=== PATIENT | male | born 1945 | race Caucasian/White ===

== ENCOUNTER 2019-09-02 22:31 | Emergency (ER) | payer MEDICARE, OTHER, SELFPAY ==
--- NOTE | 2019-09-02 22:33 | ECG_ITS ---
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 Measurements Intervals [place] Rate: 76 P: 28 NM: 175 QRS: 5 QRSD: 110 T: -29 QT: 366 QTc: 413 Interpretive Statements SINUS RHYTHM INFERIOR MYOCARDIAL INFARCTION [40+ ms Q WAVE AND/OR ST/T ABNORMALITY IN II/aVF], OF INDETERMINATE AGE Compared to ECG 09/13/2016 16:11:01 No significant changes Electronically Signed On 09-03-2019 19:04:20 CDT by Rinku Tan M.D. [email or web address]
--- NOTE | 2019-09-02 22:33 | XRR_ITS ---
PROCEDURE INFORMATION: Exam: XR Chest, 1 View Exam date and time: 09/02/2019 10:57 PM Age: 74 years old Clinical indication: Other: Palpitations; Prior surgery; Surgery type: Stent TECHNIQUE: Imaging protocol: XR of the chest Views: 1 view. COMPARISON: [place] Chest 1 [place] [id number] 09/13/2016 10:00 AM FINDINGS: Lungs: Unremarkable. No consolidation. Pleural space: Unremarkable. No pleural effusion. No pneumothorax. Heart/Mediastinum: Unremarkable. No cardiomegaly. Bones/joints: Unremarkable. XR/XR chest 1V portable [id number] IMPRESSION: No acute findings.
[2019-09-02 22:39] VITALS: BP 183/77; PULSE 72; RESP 14; TEMP 36.3; O2SAT 96; BMI 28.3
--- NOTE | 2019-09-02 22:42 | ED_ITS ---
HPI - Arrhythmia/Palpitations General: Chief Complaint: Arrhythmia/Palpitations Stated Complaint: irregular hr Time Seen by Provider: 09/02/19 22:33 Source: patient and family Mode of arrival: ambulatory Limitations: no limitations History of Present Illness: HPI narrative: Mr. Armas is a very nice 74-year-old male who comes in complaining of palpitations. He states he was at home asleep when the palpitations awoke him. He felt jittery and chilled but did not have a fever. He denies any chest pain, shortness of breath, diaphoresis, nausea/vomiting, syncope or near syncopal type symptoms. He may have gotten overheated working outside in the sun 2 days ago and attributed his symptoms to this but also felt his heart racing and per the advice of his daughter who is a physician was advised to be checked out. Upon arrival here the patient states he still feels the palpitations. Patient's vital signs show a normal heart rate but his blood pressure is mildly elevated. He denies any headache, neck pain, chest pain, shortness of breath, back pain, abdominal pain, or extremity pain or numbness/weakness. He is unaware of anything that made his symptoms better or worse but he does feel like they are slowly improving on their own. Associated symptoms: Deny diaphoresis, nausea, pre-syncope, syncope or vomiting Review of Systems Const: Denies: fever(s), chills, body aches, fatigue, malaise or diaphoresis Eyes: Denies: change in vision, blurry vision, blind spots, photophobia, eye discharge or eye redness ENMT: Denies: throat pain, odynophagia, hoarseness, swelling of lips/tongue, oral sores, ear or mastoid pain, ear discharge, change in hearing or nasal discharge Card: Reports: palpitations; Denies: chest pain, irregular heart rhythm, edema, lightheadedness, syncope, pre-syncope, dyspnea on exertion or orthopnea Resp: Denies: dyspnea, productive cough, non-productive cough, wheezing, hemoptysis or chest congestion GI: Denies: abdominal pain, nausea, vomiting, hematemesis, coffee ground emesis, heartburn, diarrhea, constipation, GI cramping, hematochezia or melena : Denies: flank pain, dysuria, urinary frequency, urinary urgency or hematuria Musc: Denies: neck pain, back pain, extremity pain, extremity swelling, joint pain, joint swelling, joint redness, joint warmth or joint stiffness Skin/Breast: Denies: rash, pruritus, erythema, skin tenderness or jaundice Neuro: Denies: headache(s), numbness in extremities, weakness in extremities, sensory changes, lack of coordination, difficulty walking, dizziness, vertigo, confusion, Slurred speech present or seizure-like activity Arthur/Lymph: Denies: easy bruising, easy bleeding, petechiae, purpura or enlarged lymph nodes All/Imm: Denies: urticaria, throat swelling, tongue swelling, facial swelling or acute wheezing PFSH ED PFSH: Medical History (Updated 09/03/19 @ 01:50 by Anat Stinson) CAD (coronary atherosclerotic disease) Degenerative joint disease (DJD) of hip Hyperlipidemia Hypertension Myocardial infarction Surgical History (Updated 09/03/19 @ 01:12 by Anat Stinson) Status post percutaneous transluminal 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) with stent placement Family History (Updated 09/03/19 @ 01:13 by Anat Stinson) Other Atrial fibrillation CAD (coronary artery disease) Social History (Updated 09/03/19 @ 01:13 by Anat Stinson) Smoking and tobacco status: never smoked Alcohol intake: never Substance/Drug Use: never Physical Exam Const: COMMON NORMALS: no acute distress, patient oriented x3, no limitations, healthy appearing and well nourished GENERAL APPEARANCE: cooperative, well kempt and well developed HENMT: COMMON NORMALS: normocephalic, atraumatic, external ears normal, EAC's normal and Normal external nose present HEAD & SCALP: normal to inspection, normocephalic and atraumatic FACE & SINUS: normal facial exam and face symmetric NOSE: Normal external nose present and Normal nares present EXTERNAL EAR: Yes external ears normal EXTERNAL AUDITORY CANAL: EAC's normal MOUTH: Normal oral and palatal mucosa present, lip normal and tongue normal Eye: COMMON NORMALS: Equal, round and reactive pupils present and conjunctivae normal GENERAL EYE: appearance normal, both eyes and all related structures ALIGNMENT: Yes alignment normal PERIORBITAL: periorbital findings normal EYELID: eyelids normal CONJUNCTIVA: Yes conjunctivae normal SCLERA: sclerae normal PUPIL: Yes Equal, round and reactive pupils present Neck/C-Spine: COMMON NORMALS: full ROM, no lymphadenopathy, supple, no meningeal signs and no JVD GENERAL: Yes normal visual inspection and Yes trachea midline Chest: COMMONS NORMALS: normal inspection of the chest and normal palpation of entire chest wall Resp: COMMON NORMALS: normal respiratory effort, No retractions and No use of accessory muscles EFFORT & INSPECTION: Yes able to speak in complete sentences and Yes symmetric chest movement AUSCULTATION: no crackles, no rales, no rhonchi and no wheezes Cardio: COMMON NORMALS: no JVD, regular rate, regular rhythm, S1 normal heart sound present and S2 normal heart sound present RATE: regular rate RHYTHM: regular rhythm HEART SOUNDS: S1 normal heart sound present, S2 normal heart sound present, no click, no gallops, no murmurs, no rubs and abnormal split S2 GI: COMMON NORMALS: Soft to palpation and No hepatosplenomegaly present PALPATION: Yes Soft to palpation, No Tenderness to palpation present (GI), No Guarding due to palpation present (GI), No Rigid due to palpation, Yes No hepatosplenomegaly present, No Hernia present, No Palpable mass present and No Pulsatile mass present : COMMON NORMALS: Yes no CVA tenderness BLADDER/KIDNEY EXAM: Yes no CVA tenderness Back/Pelvis: COMMON NORMALS: no CVA tenderness, thoracic and lumbar spine normal to inspection, no thoracic nor lumbar tenderness and thoraco-lumbar ROM normal Extremity: COMMON NORMALS: normal to inspection, full ROM, capillary refill normal, no joint enlargement, no clubbing, cyanosis or edema and no calf tenderness Neuro: COMMON NORMALS: patient oriented x3, CN's II-XII intact bilaterally, moves all extremities, no focal motor deficits and no sensory deficits noted MENINGEAL SIGNS: Yes no meningeal signs SPEECH: speech normal Psych: COMMON NORMALS: mental status grossly normal, Normal thought process present, cooperative, normal affect, speech normal and activity/motor behavior normal APPEARANCE: Yes well kempt SPEECH: Yes normal speech THOUGHT PROCESS: Normal thought process present Skin: COMMON NORMALS: no rashes or lesions noted, turgor normal, no jaundice, no petechiae and no mottling GENERAL SKIN EXAM: no rashes or lesions noted and turgor normal Course Vital Signs: Vital signs: Vital Signs Temperature 97.4 F L 09/02/19 22:39 Pulse Rate 72 09/03/19 02:10 Respiratory Rate 12 09/03/19 02:10 Blood Pressure 128/74 09/03/19 02:10 Pulse Oximetry 97 09/03/19 02:10 MDM - Arrhythmia/Palpitations MDM Narrative: Medical decision making narrative: The case was reviewed with the patient's daughter who is also Dr. There is no sign of A. fib or arrhythmia here. There is no PE. Patient is feeling tremendously better and his symptoms of resolved. He would like to be discharged home but does agree to return should his symptoms change or worsen. Lab Data: Attestation: I reviewed the patient's lab results. Labs: Lab Results 09/02/19 09/02/19 09/02/19 Range/Units 22:53 22:53 22:53 WBC 10.7 H (4.0-10.0) 10^3/ uL RBC 5.17 (4.1-5.3) 10^6/u L Hgb 14.7 (11.7-16.6) g/dL Hct 44.7 (42.0-52.0) % MCV 86.5 (80-94) fL MCH 28.4 (28.0-34.0) pg MCHC 32.9 (30.0-36.0) g/dL RDW 12.8 (12.1-15.1) % Plt Count 323 (130-400) 10^3/c mm MPV 10.0 (7.4-10.4) fL Neut % (Auto) 53.1 % Lymph % (Auto) 31.8 % King % (Auto) 10.9 % Eos % (Auto) 3.3 % Baso % (Auto) 0.6 % Neut # (Auto) 5.68 (1.8-7.7) 10^3/u L Lymph # (Auto) 3.4 (0.8-4.8) 10^3/u L King # (Auto) 1.2 H (0.2-0.9) 10^3/u L Eos # (Auto) 0.4 (0.0-0.8) 10^3/u L Baso # (Auto) 0.1 (0.0-0.1) 10^3/u L Nucleated RBC % (a uto) 0 % Nucleated RBCs # 0.0 /100WBC PT 12.50 (10.5-13.3) SECO NDS INR 0.91 (0.8-1.2) APTT 32.5 (23.9-36.7) SECO NDS D-Dimer 0.88 H (0-0.59) ug/mIFE U Sodium 135 L (136-145) mmol/L Potassium 4.3 (3.5-5.1) mmol/L Chloride 98 (98-107) mmol/L Carbon Dioxide 28 (22-29) mmol/L Anion Gap 13.3 (5-19) BUN 19 (8-23) mg/dL Creatinine 1.2 (0.7-1.2) mg/dL Glucose 107 (65-115) mg/dL Calculated Osmolal ity 277 L (285-295) mOsm/k g Calcium 10.5 (8.5-10.5) mg/dL Magnesium 2.1 (1.7-2.3) mg/dL Total Bilirubin 0.4 (0.15-1.2) mg/dL AST 25 (0-40) U/L ALT 32 (0-41) U/L Alkaline Phosphata se 70 (40-130) IU/L Troponin T Baselin e (0-15) ng/L Troponin T 120 [place] (0-15) ng/L Delta Troponin T (0-10) ABS# NT-Pro-B Natriuret Pep 52 (0-125) pg/mL Total Protein 7.4 (6.6-8.7) g/dL Albumin 4.7 (3.5-5.2) g/dL Globulin 2.7 (1.3-4.6) g/dL TSH 10.45 H (0.27-4.20) uIU/ mL Free T4 1.13 (0.82-1.77) ng/d L 09/02/19 09/03/19 Range/Units 22:53 00:51 WBC (4.0-10.0) 10^3/ uL RBC (4.1-5.3) 10^6/u L Hgb (11.7-16.6) g/dL Hct (42.0-52.0) % MCV (80-94) fL MCH (28.0-34.0) pg MCHC (30.0-36.0) g/dL RDW (12.1-15.1) % Plt Count (130-400) 10^3/c mm MPV (7.4-10.4) fL Neut % (Auto) % Lymph % (Auto) % King % (Auto) % Eos % (Auto) % Baso % (Auto) % Neut # (Auto) (1.8-7.7) 10^3/u L Lymph # (Auto) (0.8-4.8) 10^3/u L King # (Auto) (0.2-0.9) 10^3/u L Eos # (Auto) (0.0-0.8) 10^3/u L Baso # (Auto) (0.0-0.1) 10^3/u L Nucleated RBC % (a uto) % Nucleated RBCs # /100WBC PT (10.5-13.3) SECO NDS INR (0.8-1.2) APTT (23.9-36.7) SECO NDS D-Dimer (0-0.59) ug/mIFE U Sodium (136-145) mmol/L Potassium (3.5-5.1) mmol/L Chloride (98-107) mmol/L Carbon Dioxide (22-29) mmol/L Anion Gap (5-19) BUN (8-23) mg/dL Creatinine (0.7-1.2) mg/dL Glucose (65-115) mg/dL Calculated Osmolal ity (285-295) mOsm/k g Calcium (8.5-10.5) mg/dL Magnesium (1.7-2.3) mg/dL Total Bilirubin (0.15-1.2) mg/dL AST (0-40) U/L ALT (0-41) U/L Alkaline Phosphata se (40-130) IU/L Troponin T Baselin e 15 (0-15) ng/L Troponin T 120 [place] 14.32 (0-15) ng/L Delta Troponin T -0.68 L (0-10) ABS# NT-Pro-B Natriuret Pep (0-125) pg/mL Total Protein (6.6-8.7) g/dL Albumin (3.5-5.2) g/dL Globulin (1.3-4.6) g/dL TSH (0.27-4.20) uIU/ mL Free T4 (0.82-1.77) ng/d L Imaging Data^: CT Chest: Radiologist's impression: [facility] [address] [place] [address] CT Scan Report Signed Patient: Patrick Armas Unit #: [id number] : 1945 Age/Sex: 74 / M ADM Date: 09/02/19 Loc: ER Room/Bed: Attending Dr: Ordering Provider/Ordering MD: Anat Stinson DO Date of Service: 09/02/19 Procedure(s): CT angio chest PE protcl [id number] Accession Number(s): [id number] Report Number: [id number] PROCEDURE INFORMATION: Exam: CT Angiography Chest With Contrast Exam date and time: 09/02/2019 12:19 AM Age: 74 years old Clinical indication: Abnormal findings; Abnormal diagnostic tests; Elevated d-dimer; Other: Palpatations; Prior surgery; Surgery type: Stents; Additional info: Palps, positve d-dimer TECHNIQUE: Imaging protocol: Computed tomographic angiography of the chest with intravenous contrast. 3D rendering: MIP and/or 3D reconstructed images were created by the technologist. Radiation optimization: All CT scans at this facility use at least one of these dose optimization techniques: automated exposure control; mA and/or kV adjustment per patient size (includes targeted exams where dose is matched to clinical indication); or iterative reconstruction. Contrast material: OMNI 350; Contrast volume: 85 ml; Contrast route: INTRAVENOUS (IV); COMPARISON: CR XR chest 1V portable [id number] 09/02/2019 10:49 PM RADIATION DOSE METRICS: Total DLP (mGy-cm): 649.28 FINDINGS: Pulmonary arteries: Normal. No pulmonary emboli. Aorta: Unremarkable. No aortic aneurysm. No aortic dissection. Lungs: Unremarkable. No consolidation. No masses. A calcified granuloma seen in the right lung base posteriorly. Pleural space: Unremarkable. No pneumothorax. No pleural effusion. Heart: Unremarkable. No cardiomegaly. No pericardial effusion. Lymph nodes: Unremarkable. No enlarged lymph nodes. Bones/joints: Unremarkable. No acute fracture. Soft tissues: Unremarkable. CT/CT angio chest PE protcl [id number] IMPRESSION: 1. No acute findings. 2. A calcified granuloma seen in the right lung base posteriorly. Radiation Dose CTDIVOL = (mGy): DLP = 649.28 (mGy-cm) Dictated By: Quincy Newberry MD Signed By: Quincy Newberry MD Signed Date/Time: 09/03/19132 DD/ 0 EKG Data^: EKG 1: Attestation: I personally reviewed and interpreted this EKG as follows: EKG interpretation date: 09/03/19 EKG interpretation time: 22:47 Interpretation: Normal sinus rhythm at 76 beats a minute, Q waves inferiorly, no acute ST or T wave changes. Normal intervals, no blocks. Other EKG comments: Chest CTA 09/02/19 23:55 IMPRESSION: 1. No acute findings. 2. A calcified granuloma seen in the right lung base posteriorly. Radiation Dose CTDIVOL = (mGy): DLP = 649.28 (mGy-cm) Discharge Plan Discharge Patient Disposition: Home, Self-Care Clinical Impression: Palpitations Condition: Stable Discharge Orders: Discharge Order (Routine); Ordered 09/03/19 Ordered By: Anat Stinson Referrals: Rinku Tan MD [Physician] - 4-7 days Discharge Diet: Usual diet Discharge Activity: Increase activity as tolerated Patient Instructions: Palpitations (ED) Activity Restrictions/Additional Instructions: Please return to the ER immediately for any of the signs or symptoms listed on your discharge instruction sheets, worsening/changing of your symptoms, you are not getting better as quickly as expected, or for ANY other cause or concerns. Return to the ER for return of your palpitations, new onset of chest pain, new onset of shortness of breath, you pass out or nearly pass out, or for any other cause for concern. Be certain to follow-up with your doctor or with Dr. Murphy for further evaluation and care. Discharge Date/Time: 09/03/19 02:15 Coding Level of Care Code ED Wind Field Service Manager for Chg Fwd Exam Comprehensive
[2019-09-02 22:59] LABS: Basophils # 0.1 10^3/uL (0.0-0.1); Basophils % 0.6 %; Eosinophils # 0.4 10^3/uL (0.0-0.8); Eosinophils % 3.3 %; Hematocrit 44.7 % (42.0-52.0); Hemoglobin 14.7 g/dL (11.7-16.6); Lymphocytes # 3.4 10^3/uL (0.8-4.8); Lymphocytes % 31.8 %; Mean Corpuscular HGB Conc 32.9 g/dL (30.0-36.0); Mean Corpuscular Hemoglobin 28.4 pg (28.0-34.0); Mean Corpuscular Volume 86.5 fL (80-94); Monocytes # 1.2 10^3/uL (0.2-0.9); Monocytes % 10.9 %; Neutrophils # 5.68 10^3/uL (1.8-7.7); Neutrophils % 53.1 %; Nucleated Red Blood Cells % 0 %; Platelet Count 323 10^3/cmm (130-400); Red Blood Count 5.17 10^6/uL (4.1-5.3); Red Cell Distribution Width 12.8 % (12.1-15.1); White Blood Count 10.7 10^3/uL (4.0-10.0)
[2019-09-02 23:30] LABS: Troponin(5th) Baseline 15 ng/L (0-15)
[2019-09-02 23:38] LABS: Alanine Aminotransferase 32 U/L (0-41); Albumin Level 4.7 g/dL (3.5-5.2); Alkaline Phosphatase 70 IU/L (40-130); Anion Gap 13.3 (5-19); Aspartate Amino Transferase 25 U/L (0-40); Blood Urea Nitrogen 19 mg/dL (8-23); Calcium 10.5 mg/dL (8.5-10.5); Carbon Dioxide 28 mmol/L (22-29); Chloride 98 mmol/L (98-107); Free T4 Free Thyroxine 1.13 ng/dL (0.82-1.77); Globulin 2.7 g/dL (1.3-4.6); Glucose 107 mg/dL (65-115); Magnesium 2.1 mg/dL (1.7-2.3); NT Pro B Type Natriuretic Pept 52 pg/mL (0-125); Osmolality Calculated 277 mOsm/kg (285-295); Potassium 4.3 mmol/L (3.5-5.1); Sodium 135 mmol/L (136-145); Thyroid Stimulating Hormone 10.45 uIU/mL (0.27-4.20); Total Bilirubin 0.4 mg/dL (0.15-1.2); Total Protein 7.4 g/dL (6.6-8.7)
[2019-09-02 23:49] LABS: INR 0.91 (0.8-1.2); Partial Thromboplastin Time 32.5 SECONDS (23.9-36.7)
[2019-09-02 23:52] LABS: D Dimer 0.88 ug/mIFEU (0-0.59)
--- NOTE | 2019-09-02 23:55 | CTR_ITS ---
PROCEDURE INFORMATION: Exam: CT Angiography Chest With Contrast Exam date and time: 09/02/2019 12:19 AM Age: 74 years old Clinical indication: Abnormal findings; Abnormal diagnostic tests; Elevated d-dimer; Other: Palpatations; Prior surgery; Surgery type: Stents; Additional info: Palps, positve d-dimer TECHNIQUE: Imaging protocol: Computed tomographic angiography of the chest with intravenous contrast. 3D rendering: MIP and/or 3D reconstructed images were created by the technologist. Radiation optimization: All CT scans at this facility use at least one of these dose optimization techniques: automated exposure control; mA and/or kV adjustment per patient size (includes targeted exams where dose is matched to clinical indication); or iterative reconstruction. Contrast material: OMNI 350; Contrast volume: 85 ml; Contrast route: INTRAVENOUS (IV); COMPARISON: CR XR chest 1V portable [id number] 09/02/2019 10:49 PM RADIATION DOSE METRICS: Total DLP (mGy-cm): 649.28 FINDINGS: Pulmonary arteries: Normal. No pulmonary emboli. Aorta: Unremarkable. No aortic aneurysm. No aortic dissection. Lungs: Unremarkable. No consolidation. No masses. A calcified granuloma seen in the right lung base posteriorly. Pleural space: Unremarkable. No pneumothorax. No pleural effusion. Heart: Unremarkable. No cardiomegaly. No pericardial effusion. Lymph nodes: Unremarkable. No enlarged lymph nodes. Bones/joints: Unremarkable. No acute fracture. Soft tissues: Unremarkable. CT/CT angio chest PE protcl [id number] IMPRESSION: 1. No acute findings. 2. A calcified granuloma seen in the right lung base posteriorly. Radiation Dose CTDIVOL = (mGy): DLP = 649.28 (mGy-cm)
[2019-09-03] MEDS: sodium chloride 0.9% 1,000 ML 100 ML IV (00:52)
[2019-09-03] MEDS: famotidine 20 mg/2 mL INJ 40 MG IVP (00:53)
[2019-09-03] MEDS: diphenhydrAMINE 50 mg/mL SDV 1mL IVP (00:53)
[2019-09-03] MEDS: hydrocortisone 100 mg/2 mL SDV IVP (00:54)
[2019-09-03] MEDS: iohexol 350 mg/mL 100 mL Btl IV (01:08)
[2019-09-03 01:27] LABS: Troponin 5 2HR 14.32 ng/L (0-15)
[2019-09-03 01:29] LABS: Troponin 5 2HR Delta -0.68 ABS# (0-10)
[2019-09-03 01:56] VITALS: BP 131/71; PULSE 72; RESP 12; O2SAT 97
[2019-09-03 02:10] VITALS: BP 128/74; PULSE 72; RESP 12; O2SAT 97
== END 2019-09-03 02:15 | disposition home or self-care (01) ==
PROVIDERS: Emergency Provider Emergency Medicine
DX: R00.2 Palpitations (principal); I25.10 Atherosclerotic heart disease of native coronary artery without angina pectoris; E78.5 Hyperlipidemia, unspecified; I10 Essential (primary) hypertension; I25.2 Old myocardial infarction; Z79.899 Other long term (current) drug therapy
CPT/HCPCS: 12345; 71045; 71275; 80053; 83735; 83880; 84439; 84443; 84484; 85025; 85378; 85610; 85730; 93005; 96361; 96374; 96375; 99283; 99284; J1200; J1720; J3490; J7030; Q9967

== ENCOUNTER 2021-02-23 09:15 | Outpatient (CLI) | payer MEDICARE, OTHER, SELFPAY ==
[2021-02-23 09:32] VITALS: BP 116/60; PULSE 66; RESP 16; TEMP 36.6; O2SAT 96; BMI 27.7
[2021-02-23 10:27] VITALS: BP 114/62; PULSE 63; RESP 63; TEMP 36.7; O2SAT 96
[2021-02-23 11:22] VITALS: BP 119/61; PULSE 66; RESP 18; TEMP 36.1; O2SAT 96
== END 2021-02-23 09:16 | disposition home or self-care (01) ==
PROVIDERS: Visit Provider Internal Medicine
DX: U07.1 COVID-19 (principal)
CPT/HCPCS: 96365

== ENCOUNTER → 2022-03-07 10:55 | Outpatient (BNVA) | payer MEDICARE, OTHER, SELFPAY | PROVIDERS: PCP Internal Medicine; Visit Provider Internal Medicine Cardiovascular Disease | DX: I25.10 Atherosclerotic heart disease of native coronary artery without angina pectoris (principal); E78.5 Hyperlipidemia, unspecified; Z95.820 Peripheral vascular angioplasty status with implants and grafts; I10 Essential (primary) hypertension; I25.2 Old myocardial infarction | CPT/HCPCS: 99203 ==

== ENCOUNTER 2022-04-15 10:16 | Outpatient (CLI) | payer MEDICARE, OTHER, SELFPAY ==
[2022-04-15 10:27] VITALS: BMI 27.7
--- NOTE | 2022-04-15 10:52 | ECG_ITS ---
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 Interpretive Statements NAME OF STUDY: LEXISCAN SESTAMIBI STRESS TEST INDICATION: [Chest Pain, ] Procedure: At the baseline, the blood pressure was 135/73 mmHg with a heart rate of 71 bpm. The electrocardiogram showed normal sinus rhythm, normal axis with normal ST and T's. The Lexiscan was infused over a period of 20 seconds. A total of 0.4 mg of Lexiscan was infused. The stress phase was continued for a total of 5 minutes. Heart rate was at the end of stress phase was 85 bpm and a blood pressure of 138/68 mmHg. The EKG at the peak infusion revealed normal sinus rhythm with no significant ST-T wave changes. Sestamibi was injected 20 seconds after the Lexiscan infusion. Blood pressure at the end of recovery phase was 124/63 mmHg with a heart rate of 87 bpm. Conclusion: 1. Normal EKG response to Lexiscan infusion 2. No Lexiscan induced chest pain or cardiac arrhythmia. 3. Normal blood pressure and heart rate response. 4. Sestamibi/sestamibi perfusion scan pending; see separate report. Electronically Signed On 04-27-2022 18:38:45 FAMILY PROTECTION SPECIALIST by Pete Martin M.D. [email or web address]
--- NOTE | 2022-04-15 10:53 | NMCV_ITS ---
NM solo perf SPECT r/s* [id number] Patrick Armas Age: 77 Gender: M : 1945 Exam Date: 04/15/2022 10:53 Ordering Phys: Casa Bennett MD ([email or web address]) Technologist: THOMAS Samuel Exam Location: [facility] Indications: PERIPHERAL VACSCULAR ANGIOPLASTY STATUS STRESS TEST [facility] IMAGE PROTOCOL Rest/Stress 1 Lexiscan Day Radiopharmaceutical Dose (mCi) Administration Site Administered by Rest: Tc-99m 10.8 IV THOMAS Tamez Sestamibi Stress:Tc-99m 32.8 IV THOMAS Samuel Sestamijhonny Rest: 15-Apr-2022 60 Discovery 630 Stress: 15-Apr-2022 30 Discovery 630 0.4mg Lexiscan. Images obtained in supine and prone position. SPECT RESULTS Technical Quality: Excellent Raw Data Analysis: Normal Image Corrections: No attenuation or motion correction applied Summed Stress Score: 13 Summed Rest Score: 8 Summed Difference Score: 6 PERFUSION FINDINGS There is a medium in size, partially reversible perfusion defect noted in the apical and apical anterior easton that is consistent with medium sized prior infarct with minimal lisa-infarct ischemia in LAD territory. There is large in sized fixed perfusion defect noted in the inferior wall. This is consistent with large sized prior infarct noted in RCA territory. FUNCTIONAL RESULTS (calculated via Gated SPECT) Stress Image LV EF (%): 47 Stress EDV (mL):194 TID: 0.97 Stress ESV (mL):102 FUNCTIONAL FINDINGS: LV systolic function is mildly reduced with EF of 47%. Mild global hypokinesis. IMPRESSIONS 1. Abnormal myocardial perfusion imaging 2. Moderate sized prior infarct with minimal lisa-infarct ischemia noted in the LAD territory 3. Large sized prior infarct noted in the RCA territory. 4. LV systolic function is mildly reduced Pete Martin MD (Electronically Signed) Final Date: 16 April 2022 18:23 S
--- NOTE | 2022-04-15 12:03 | PC.NURSE ---
pt not able to hit target heart rate due to fatigue. dr foster called and okayed a change in order. Dmitri ordered now.
[2022-04-15 12:17] VITALS: BP 124/63; PULSE 87
[2022-04-15] MEDS: regadenoson 0.4 Mg/5 ml Syringe IVP (12:19)
== END 2022-04-15 10:17 | disposition home or self-care (01) ==
LOC: CDL 10:19
PROVIDERS: PCP Internal Medicine; Visit Provider Internal Medicine Cardiovascular Disease
DX: Z98.62 Peripheral vascular angioplasty status (principal); R07.9 Chest pain, unspecified; I25.9 Chronic ischemic heart disease, unspecified
CPT/HCPCS: 36415; 78452; 93017; A9500; J2785

== ENCOUNTER → 2022-04-30 10:42 | Outpatient (BNVA) | payer MEDICARE, OTHER, SELFPAY | PROVIDERS: PCP Internal Medicine; Visit Provider Internal Medicine Cardiovascular Disease | DX: I25.10 Atherosclerotic heart disease of native coronary artery without angina pectoris (principal); Z95.820 Peripheral vascular angioplasty status with implants and grafts; E78.5 Hyperlipidemia, unspecified; I10 Essential (primary) hypertension; Z79.82 Long term (current) use of aspirin | CPT/HCPCS: 36415; 80048; 85025; 85610; 99213 ==

== ENCOUNTER 2022-05-02 07:59 | Outpatient (CLI) | payer MEDICARE, OTHER, SELFPAY ==
[2022-05-02] VITALS (17 sets, daily range): BP systolic 133–167; BP diastolic 64–94; PULSE 63–83; RESP 15–22; TEMP 36.4; O2SAT 93–98; BMI 29.2
[2022-05-02] MEDS: diphenhydrAMINE 50 mg Capsule PO (08:47)
--- NOTE | 2022-05-02 08:53 | P.HPUD_ITS ---
Surgery/Procedure H&P Update DATE OF PROCEDURE: May 02, 2022 DATE H&P PERFORMED: 04/30/22 H&P UPDATE INFORMATION: I have reviewed H&P completed within last 30 days, I have examined patient prior to procedure, No changes to prior documentation and H&P is in [facility] EMR on date indicated PREOP DIAGNOSIS: CAD, abnormal stress test PRIMARY INDICATION FOR PROCEDURE: CP,abnormal stress test PLANNED PROCEDURE: Operation Date: 05/02/22 10:00 Proposed Procedures p [facility] w/wo [id number],I25.10(Left) - Casa Bennett MD
--- NOTE | 2022-05-02 09:00 | XACV_ITS ---
Ht: 185 cm Wt: 101 kg BSA: 2.30 m2 Gender: Male : 1945 Any Known Allergies: Shellfish Exam Priority: Routine Procedure(s): Procedure Description: Diagnostic procedure Procedure Description: Left Heart Catheterization Procedure Description: Left ventriculography Procedure Description: Coronary Angiography Sabrina JIMENEZ; Diagnostic Cath Status: Elective Diagnostic Findings * 74-year-old male with prior LAD stent several years ago with mild chest discomfort somewhat typical of angina. Nuclear stress testing revealed significant abnormalities in the distribution of the LAD and right coronary arteries. The patient has excellent exercise tolerance however. Because of his previous history, the mild atypical pain and abnormal stress test I recommended coronary angiography. * Coronary angiography reveals right coronary artery dominance. The left main coronary artery is normal. The circumflex is a fairly large vessel and initially gives off a very small first obtuse marginal branch which is severely diffusely diseased in the ostium and the proximal portion. Beyond this there is a 70 to 80% discrete stenosis. Following this is the bifurcation of the left atrial recurrent branch and the second and third obtuse marginals. In the very proximal portion of the second obtuse marginal there is an 80% lesion. More distally in this vessel there is a 90% stenosis. In the midportion there is a 50% stenosis. The third marginal is a fairly good sized vessel and provides some collateral flow to the distal right coronary artery. The LAD is essentially normal proximally. The previously placed stent is in the proximal vessel just prior to the takeoff of the first septal. It is patent. There is a proximal diagonal branch which has a 80 to 90% stenosis in the proximal portion. In the mid LAD, past the stent in past the septal branch, there is a 99% discrete stenosis. The remainder of the LAD appears essentially normal. There is collateral flow from 2 septal branches to the distal right coronary artery. The right coronary artery is the dominant vessel and contains mild to moderate diffuse disease throughout its entire course. There is a 60 to 70% mid vessel stenosis. The posterior descending artery contains severe diffuse disease in its proximal portion and moderate disease in the midportion. The posterior left ventricular branch is occluded at its ostium. There is some bridging collaterals from the posterior descending artery to this vessel as well. All 3 coronary arteries are heavily calcified.. Conclusions 1. Heavily calcified coronary arteries with three-vessel disease to involve the mid right coronary artery, the posterior left ventricular branch, the posterior descending artery, the first second and third obtuse marginal branches, the diagonal and LAD. Mild left ventricular dysfunction. Recommendations * Coronary artery bypass surgery. Interventional RX Recommendation: CABG Diagnostic RX Recommendation: CABG Anticoagulation: Heparin Ventriculography Ejection Fraction: 45.0 % Pressures Phase:Rest AO : 116 / 56 ( 78 ) @ 9:25:00 AM 125 / 54 ( 82 ) @ 9:37:00 AM 128 / 51 ( 83 ) @ 9:37:00 AM LV : 122 / -7 / 7 @ 9:34:00 AM 121 / -7 / 9 @ 9:36:00 AM 125 / -7 / 9 @ 9:37:00 AM Valves Phase:DefaultPhase AV : 0.0 @ 9:49:05 AM 0.0 @ 9:49:05 AM AV Mean Gradient: 0.0 @ 9:49:05 AM 0.0 @ 9:49:05 AM Clinical Evaluation EBL: 5mL-10mL Procedural Details Procedure Consent Obtained. Pre-Procedure Time Out. Identified patient by full name and date of as verbalized by the patient/guarantor. Does the consent match the physician's order: Yes. Accurate & Complete Informed Consent: Yes. Inpatient/Outpatient History & Physical on Chart: Yes. If H&P is completed, is and addenduem needed: No; If yes, is the addendum complete: N/A. Visualize and Verify Site with Patient/Guarantor: N/A. Relevant Radiology Images available: N/A. Pre-op teaching completed and patient verbalized understanding. The risks, benefits, and alternatives of sedation and/or procedure were discussed by physician. The patient agrees to continue. Procedure started. [facility] Clinical Fraility Score: 1: Very Fit. Ict Programmer Indications: Stable Known CAD. Chest Pain Symptom Assessment: Atypical Angina. Cardiovascular Instability: No. Correct patient, site and procedure confirmed by cath team. PERRLA. Strong, equal hand apron operator bilaterally. Lungs clear x 5 lobes. IV Site on Arrival: 18 gauge in the left anticubital. IV Fluids: 0.9% NaCl at KVO. 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 Pre Procedural Pulses: bilateral dorsalis pedis was 3+. Pre Procedural Pulses: bilateral posterior tibial was 3+. Pre Procedural Pulses: bilateral radial was 3+. Oxygen started at 2liters/min via nasal canula. right radial was prepped with chloroprep then draped in the usual sterile fashion. right groin was prepped with chloroprep then draped in the usual sterile fashion. Physician arrived. Baseline sample Acquired. HR: 65 BPM. Equipment: 6F - Radial. Cardiac Cath Pack. ACIST Manifold Kit Model BT 2000. Heparinized Saline (2 units/mL), 1000 mL bag. Physician scrubbed in. Immediate Pre-Procedure Time Out. Correct Patient: Yes; Correct Procedure: Yes; Correct Site: Yes; Correct Patient Position: Yes; Correct Supplies: Yes; Dried Flammable Prep: Yes; Blood Products Available: N/A;. Lidocaine 1% infiltrated to the right radial. Arterial access obtained. A 6 [place] citizen TIG catheter in over wire. Multiple views taken of right coronary artery. Catheter redirected to the LCA. Multiple views taken of left coronary artery. Wire inserted and placed in LV. Catheter removed over the standard wire. A 6 [place] citizen Angled Pig catheter in over wire. EDP Sample taken: LV 122/-7,7; HR: 72 BPM; SpO2: 97%. LV gram performed in PADILLA @ 10 mL/second for a total of 30 mL. EDP Sample taken: LV 121/-8,9; HR: 69 BPM; SpO2: 96%. Pullback taken: LV 125/-8,9; AO 125/54(82); Mean: 0mmHg, Peak to Peak: 0mmHg, SEP: 14sec/min; HR: 70 BPM; SpO2: 98%. Catheter out. Physician scrubbed out. A TR Band was successful obtaining hemostatsis at the Right Radial artery insertion site. TR band placed. Hemostasis obtained. Post Procedure: Pulses reassessed and unchanged. PERRLA. Strong, equal hand apron operator bilaterally. No VTE prophylaxis required. Medication's Wasted: Nitro = 49.8 mg. Medication's Wasted: Heparin = 1000 units. Total IV fluids: 36 mL. Contrast type used: Omnipaque 300 mgI/mL, 500 mL bottle. Complications: none. Estimated blood loss: 5mL-10mL. Responsiveness - Normal response to verbal stimuli; alert and oriented, PERRLA. Airway - Unaffected, no intervention required; spontaneous ventilation. Circulation: W/N/L, pulses unchanged. Nausea/Vomiting: No. Post-op diagnosis: multi vessel CAD. Procedure completed. Procedure completed. Patient transferred by stretcher to CPRU. Vital chart was stopped. Access Site Site: Right Radial artery Sheath Size: 6 Fr Hemostasis Method: TR Band Hemostasis Success: Successful Procedure Medications Start: 9:13 AM Stop: 9:13 AM Medication: Solu-Medrol (methylprednisolone) Amount: 125 mg Route: I.V. Start: 9:13 AM Stop: 9:13 AM Medication: Versed Amount: 1 mg Route: I.V. Start: 9:13 AM Stop: 9:13 AM Medication: Fentanyl Amount: 50 mcg Route: I.V. Start: 9:19 AM Stop: 9:19 AM Medication: Versed Amount: 1 mg Route: I.V. Start: 9:19 AM Stop: 9:19 AM Medication: Fentanyl Amount: 50 mcg Route: I.V. Start: 9:23 AM Stop: 9:23 AM Medication: Nitrogylcerin Amount: 200 mcg Route: I.A. Start: 9:24 AM Stop: 9:24 AM Medication: Heparin Amount: 5000 units Route: I.V. I, the attending physician, have reviewed and verified all procedure medications. Yes, all medications given per verbal order History/Risk Factors Hypertension: Yes Dyslipidemia: Yes Peripheral Arterial Disease (PAD): No Myocardial Infarction (GA): Yes Obesity: No Renal Disease: No Tobacco Use: Never Prior Interventions PCI: Yes CABG: No Valve Surgery: No Report Signatures Finalized by Dr. Casa Bennett MD on 05/02/2022 10:39 AM
--- NOTE | 2022-05-02 09:51 | SUR.PHASEII ---
POST CATH NOTE Patient brought back to CPRU- status post cardiac catheterization via the right radial approach. TR Band hemostatic- 16 ml in the band. Family at bedside. Call light within reach. See PCS for vital record and radial assessments. DR blancas in to discuss findings.
--- NOTE | 2022-05-02 10:05 | SUR.PHASEII ---
POST CATH FLUIDS IV 0.9% NS AT 100 ML/HR POST CATH. Infusing without difficulty.
--- NOTE | 2022-05-02 11:00 | SUR.PHASEI ---
TR BAND DEFLATION BEGAN PER PROTOCOL.
--- NOTE | 2022-05-02 12:10 | SUR.PHASEII ---
tr band down/removed Removal uncomplicated. Band aid applied.
--- NOTE | 2022-05-02 12:48 | P.DS_ITS ---
Discharge Providers Date of Admission: May 02, 2022 Date of Discharge: May 02, 2022 Attending Provider at Admission: magalis Attending Provider at Discharge: Casa Bennett MD Primary Care Provider: Haley Rocha MD Diagnoses at Discharge Discharge Diagnosis (1) Status post percutaneous transluminal angioplasty (VIRTUALIZATION ARCHITECT) with stent placement: Status: Acute (2) Myocardial infarction: Status: Acute (3) CAD (coronary atherosclerotic disease): Status: Acute (4) Hypertension: Status: Acute (5) Hyperlipidemia: Status: Acute Reason for Visit Reason for Visit: I25.10 Brief History: This patient is 77 and has a history of an LAD stent. Recently he has been having some rather atypical burning type sensation in his chest with vigorous exercise. He has great exercise tolerance have been walked a half marathon a couple weeks ago. He had a stress test which shows some fairly dramatic abnormalities in the distribution of the LAD and the right coronary artery. Because of this we decided to perform coronary angiography Hospital Course Hospital Course His angiogram shows severe three-vessel disease with occlusion of the distal right coronary artery branch, several severe circumflex lesions and a very tight mid LAD lesion. There is also diagonal disease. His left ventricular function shows mild hypokinesis of the inferior wall. Ejection fraction is about 45%. He is being referred for coronary bypass surgery. The procedure was done from the right radial artery Physical Exam Narrative: GENERAL: In general he looks and feels well HEENT: Exam within normal limits. [] NECK: Supple without jugular vein distention. The carotid upstroke is normal without bruits. [] BACK: Exam normal. [] LUNGS: Clear. [] HEART: Regular rate and rhythm. ABDOMEN: Benign without organomegaly or tenderness. EXTREMITIES: No edema. The right radial artery area is flat, dry without hematoma or bleeding. NEUROLOGIC: Exam normal. SKIN: Unremarkable. 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 Routine Exams 05/02/22 09:00 Completed Procedures Performed Coronary angiography, left ventriculography, left heart catheterization Vitals Last Vital Signs Temp 97.6 F 05/02/22 08:52 Pulse 78 05/02/22 12:00 Resp 19 H 05/02/22 12:00 BP 156/81 05/02/22 12:00 Pulse Ox 96 05/02/22 12:00 O2 Del Method 05/02/22 12:00 Discharge Plan Discharge Patient Disposition: Home Prescriptions: New isosorbide mononitrate 30 mg tablet extended release 24 hr 30 mg PO DAILY Qty: 30 1RF Continued lisinopril 20 mg tablet 20 mg PO DAILY atorvastatin 20 mg tablet 20 mg PO DAILY aspirin 81 mg tablet,delayed release (DR/EC) 81 mg PO DAILY levothyroxine 25 mcg tablet 25 mcg PO DAILY Discharge Orders: Discharge Order (Routine); Ordered 05/02/22 Ordered By: Casa Bennett Diet: Usual diet Activity: Limit activity as instructed Activity Restrictions/Additional Instructions: Over 5 pounds for 2 days with the right upper extremity. Discharge Attestations Time Spent in Discharge Care*: less than 30 min Quality Metrics Clinical Quality Measures [ No reported AMI, CVA or VTE this stay] Coding Level of Care Code Acute Code for Chg Fwd Diagnoses Status post percutaneous transluminal angioplasty (VIRTUALIZATION ARCHITECT) with stent placement Z95.820 Myocardial infarction I21.9 CAD (coronary atherosclerotic disease) I25.10 Hypertension I10 Hyperlipidemia E78.5
== END 2022-05-02 13:35 | disposition home or self-care (01) ==
PROVIDERS: PCP Internal Medicine; Visit Provider Internal Medicine Cardiovascular Disease
DX: I25.10 Atherosclerotic heart disease of native coronary artery without angina pectoris (principal); I10 Essential (primary) hypertension; E78.5 Hyperlipidemia, unspecified; I25.2 Old myocardial infarction; Z95.820 Peripheral vascular angioplasty status with implants and grafts; Z79.82 Long term (current) use of aspirin
CPT/HCPCS: 36415; 93458; 96361; 96365; 99152; 99153; C1769; C1887; C1894; J1644; J2250; J2930; J3010; J3490; J7030; Q0163; Q9967

== ENCOUNTER 2022-05-27 09:29 | Outpatient (CLI) | payer MEDICARE, OTHER, SELFPAY ==
--- NOTE | 2022-05-27 10:00 | XR_ITS ---
WS: [id number] XR chest 2V* [id number] REASON FOR EXAM: CAD FINDINGS: The chest is unchanged compared to 09/02/2019. Moderate tortuosity and ectasia of the thoracic aorta without aneurysmal dilatation. Heart size within normal limits. Calcified granulomatous disease in both hemithoraces. No active pulmonary parenchymal or pleural dise ase. Eventration of the right hemidiaphragm. Moderate to significant degenerative spondylosis in the upper and mid thoracic spine. XR/XR chest 2V* [id number] IMPRESSION: Stable chest without acute abnormality.
== END 2022-05-27 09:30 | disposition home or self-care (01) ==
PROVIDERS: PCP Internal Medicine; Visit Provider Internal Medicine
DX: I25.10 Atherosclerotic heart disease of native coronary artery without angina pectoris (principal)
CPT/HCPCS: 71046

== ENCOUNTER → 2022-06-28 09:30 | Outpatient (BNVA) | payer MEDICARE, OTHER, SELFPAY | PROVIDERS: PCP Internal Medicine; Visit Provider Internal Medicine Cardiovascular Disease | DX: I25.2 Old myocardial infarction (principal); I25.10 Atherosclerotic heart disease of native coronary artery without angina pectoris; E78.5 Hyperlipidemia, unspecified; I10 Essential (primary) hypertension; Z95.1 Presence of aortocoronary bypass graft | CPT/HCPCS: 99213 ==

== ENCOUNTER → 2023-01-27 11:16 | Outpatient (BNVA) | payer MEDICARE, OTHER, SELFPAY | PROVIDERS: PCP Internal Medicine; Visit Provider Internal Medicine Cardiovascular Disease | DX: Z95.820 Peripheral vascular angioplasty status with implants and grafts (principal); Z95.1 Presence of aortocoronary bypass graft; I25.10 Atherosclerotic heart disease of native coronary artery without angina pectoris; E78.5 Hyperlipidemia, unspecified; I10 Essential (primary) hypertension; I25.2 Old myocardial infarction; Z79.82 Long term (current) use of aspirin | CPT/HCPCS: 99213 ==

== ENCOUNTER 2023-08-02 08:40 | Emergency (ER) | payer MEDICARE, OTHER, SELFPAY ==
[2023-08-02] VITALS (9 sets, daily range): BP systolic 114–146; BP diastolic 67–98; PULSE 50–59; RESP 16–18; TEMP 37; O2SAT 96–98; BMI 29.8
--- NOTE | 2023-08-02 08:50 | XRR_ITS ---
PROCEDURE INFORMATION: Exam: XR Chest Exam date and time: 08/02/2023 9:16 AM Age: 78 years old Clinical indication: Dyspnea; Additional info: Dyspnea/cough TECHNIQUE: Imaging protocol: Radiologic exam of the chest. Views: 1 view. COMPARISON: CR XR chest 2V* [id number] 05/27/2022 10:05 AM FINDINGS: Lungs: Unremarkable. No consolidation. Pleural spaces: Unremarkable. No pleural effusion. No pneumothorax. Heart/Mediastinum: Unremarkable. No cardiomegaly. Bones/joints: New metal sternal and manubrial sutures. Unchanged mild scoliosis with mild and moderate multilevel spondylosis. Otherwise, unremarkable. XR/XR chest 1V portable [id number] IMPRESSION: No acute findings.
--- NOTE | 2023-08-02 08:50 | XRR_ITS ---
PROCEDURE INFORMATION: Exam: XR Left Humerus Exam date and time: 08/02/2023 9:17 AM Age: 78 years old Clinical indication: Injury or trauma; Fall; Blunt trauma (contusions or hematomas); Arm, upper; Injury details: PT states he tripped over a rug today. PT C/O of left elbow pain. PT reports hitting his face on the ground. PT reports taking aspirin daily. TECHNIQUE: Imaging protocol: Radiologic exam of the left humerus. Views: 2 or more views. COMPARISON: CR (CHEST, ) 08/02/2023 9:16 AM FINDINGS: Bones/joints: Otherwise, unremarkable left humerus. Soft tissues: Small amount of soft tissue calcification adjacent to the medial epicondyle is likely due to old tendinosis or old soft tissue injury/inflammation.. XR/[place] [id number] IMPRESSION: No acute findings left humerus.
--- NOTE | 2023-08-02 08:54 | CTR_ITS ---
PROCEDURE INFORMATION: Exam: CT Head Without Contrast Exam date and time: 08/02/2023 9:11 AM Age: 78 years old Clinical indication: Injury or trauma; Fall; Blunt trauma (contusions or hematomas); Patient HX: PT states he tripped over a rug today. PT C/O of left elbow pain. PT reports hitting his face on the ground. PT reports taking aspirin daily. TECHNIQUE: Imaging protocol: Computed tomography of the head without contrast. Radiation optimization: All CT scans at this facility use at least one of these dose optimization techniques: automated exposure control; mA and/or kV adjustment per patient size (includes targeted exams where dose is matched to clinical indication); or iterative reconstruction. COMPARISON: CT head wo con* [id number] 09/13/2016 10:11 AM RADIATION DOSE METRICS: Total DLP (mGy-cm): 997.4 FINDINGS: Brain: Unchanged mild, diffuse atrophy of the brain.There is ill-defined, fairly symmetric low-density within the cerebral deep white matter bilaterally which is likely the sequela of chronic ischemic change due to small vessel disease. This may have progressed slightly. No CT evidence of mass effect, intracranial hemorrhage, or acute infarct. Otherwise, unremarkable. Cerebral ventricles: No ventriculomegaly. Paranasal sinuses: Nondisplaced fractures of the lateral wall of the right maxillary sinus and of the anterior lateral inferior corner of the right maxillary sinus. Otherwise, unremarkable. Blood in the right maxillary sinus versus acute sinusitis. Otherwise, unremarkable. Mastoid air cells: Visualized mastoid air cells are well aerated. Bones: Slightly impacted and slightly displaced bilateral nasal bone fractures. Soft tissues: Small amount of gas in the soft tissues lateral to the right maxillary sinus likely secondary to the fractures. Otherwise, unremarkable soft tissues. CT/CT head wo con* [id number] IMPRESSION: 1. No acute intracranial findings. 2. Unchanged mild, diffuse atrophy of the brain. 3. Chronic ischemic changes bilaterally may have progressed slightly in the interval. 4. Bilateral nasal bone fractures. 5. Right maxillary sinus fractures with a small amount of gas in the soft tissues lateral to the right maxillary sinus. 6. Blood in the right maxillary sinus versus acute sinusitis.
--- NOTE | 2023-08-02 08:54 | CTR_ITS ---
PROCEDURE INFORMATION: Exam: CT Maxillofacial Without Contrast Exam date and time: 08/02/2023 9:11 AM Age: 78 years old Clinical indication: Injury or trauma; Fall; Blunt trauma (contusions or hematomas); Forehead and nose and lip/oral cavity; Both upper and lower; Injury details: PT states he tripped over a rug today. PT C/O of left elbow pain. PT reports hitting his face on the ground. PT reports taking aspirin daily. TECHNIQUE: Imaging protocol: Computed tomography of the face without contrast. Radiation optimization: All CT scans at this facility use at least one of these dose optimization techniques: automated exposure control; mA and/or kV adjustment per patient size (includes targeted exams where dose is matched to clinical indication); or iterative reconstruction. COMPARISON: CT head wo con* [id number] 08/02/2023 9:11 AM RADIATION DOSE METRICS: Total DLP (mGy-cm): 719.1 FINDINGS: Orbital cavities: Orbits are normal. Globes are unremarkable. Paranasal sinuses: Blood in the right maxillary sinus versus acute sinusitis. Minimal bilateral sinusitis elsewhere. Bones: Bilateral, slightly impacted and slightly displaced nasal bone fractures. Possible nondisplaced fracture lateral wall of the right maxillary sinus. Nondisplaced fracture involving the anterolateral inferior corner of the right maxillary sinus. Possible nondisplaced fracture of the lateral wall of the left maxillary sinus. No other fractures identified. Mild arthritis both TMJ joints. Spondylosis in the visualized cervical spine. Otherwise, unremarkable. Soft tissues: Otherwise, unremarkable. CT/CT facial bones wo con* [id number] IMPRESSION: 1. Bilateral nasal bone fractures. 2. Nondisplaced fracture of the anterolateral inferior corner of the right maxillary sinus. 3. Possible nondisplaced fractures of the lateral [place] of both maxillary sinuses. 4. Additional details as above.
--- NOTE | 2023-08-02 09:05 | XRR_ITS ---
PROCEDURE INFORMATION: Exam: XR Left Elbow Exam date and time: 08/02/2023 9:19 AM Age: 78 years old Clinical indication: Injury or trauma; Fall; Blunt trauma (contusions or hematomas); Injury details: History--pt states he tripped over a rug today. PT C/O of left elbow pain. PT reports hitting his face on the ground. PT reports taking aspirin daily. TECHNIQUE: Imaging protocol: Radiologic exam of the left elbow. Views: 3 or more views. COMPARISON: CR (UP EX, ) 08/02/2023 9:17 AM FINDINGS: Bones/joints: Slightly displaced comminuted fracture of the left radial head and neck. Nondisplaced fracture of the coronoid process. Otherwise, unremarkable. Soft tissues: Surgical clips in the soft tissues of the anterior proximal left forearm. Otherwise, unremarkable soft tissues. XR/XR elbow LT min 3V* [id number] IMPRESSION: Fractures of the left radial head and neck and of the left coronoid process.
--- NOTE | 2023-08-02 09:06 | ED_ITS ---
HPI - Extremity Problem 2 General: Chief complaint: Extremity Injury, Upper Stated complaint: left arm pain Time Seen by Provider: 08/02/23 08:50 Source: patient and family Mode of arrival: ambulatory History of Present Illness: 78-year-old male presents to the emergen cy room with complaint of left elbow pain and facial trauma. Patient was at home he stumbled on a rug in a dimly lit room and fell landed essentially face first he did try to get his left arm out in front of him. No loss consciousness is a significant amount of facial swelling especially around the nose and the upper and lower lip. He does take aspirin daily but no other anticoagulants. No vomiting no chest or abdominal pain. MD Complaint: joint pain (Left elbow) Onset (ago): minute(s) Pain Consistency: constant Location: left (Elbow) and other (Face) Relieving factors: nothing Exacerbating factors: nothing Associated symptoms: Deny arthralgias, chest pain, fever(s), myalgias, rash or short of breath Review of Systems 2 Const: Denies: fever(s) or chills Card: Denies: chest pain Resp: Denies: dyspnea GI: Denies: abdominal pain : Denies: dysuria, urinary frequency or urinary urgency Musc: Reports: joint pain; Denies: neck pain or back pain Skin/Breast: Denies: rash PFSH ED 2 PFSH: Medical History Degenerative joint disease (DJD) of hip Myocardial infarction CAD (coronary atherosclerotic disease) Hyperlipidemia Hypertension Surgical History S/P CABG x 3 Status 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 Family History Other Atrial fibrillation CAD (coronary artery disease) Social History Smoking and tobacco/nicotine status: never used tobacco/nicotine Alcohol intake: never Substance/Drug Use: never Physical Exam 2 Const: COMMON NORMALS: no acute distress GENERAL APPEARANCE: cooperative and comfortable ORIENTATION/CONSCIOUSNESS: Yes awake, Yes oriented to person, Yes oriented to place and Yes oriented to time HENMT: COMMON NORMALS: normocephalic and hearing grossly normal bilaterally HEAD & SCALP: normocephalic OTHER: Patient trauma with swelling ecchymosis small laceration across the bridge of the nose abrasion on the forehead no obvious deformities. Large amount of swelling in the upper lower lip with ecchymosis already forming in the lips Resp: COMMON NORMALS: normal respiratory effort, No retractions, No use of accessory muscles and clear to auscultation bilaterally AUSCULTATION: clear to auscultation bilaterally Cardio: COMMON NORMALS: regular rate, regular rhythm and No murmurs present (Cardio) RATE: regular rate RHYTHM: regular rhythm GI: COMMON NORMALS: Soft to palpation and No hepatosplenomegaly present A USCULTATION: Yes normoactive bowel sounds PALPATION: Yes Soft to palpation, No Tenderness to palpation present (GI), No Guarding due to palpation present (GI) and Yes No hepatosplenomegaly present Extremity: COMMON NORMALS: normal to inspection, capillary refill normal, no clubbing, cyanosis or edema, no calf tenderness and no pedal edema Neuro: SENSORIUM/ORIENTATION: Yes oriented to person, Yes oriented to place and Yes oriented to time Skin: COMMON NORMALS: no rashes or lesions noted GENERAL SKIN EXAM: no rashes or lesions noted Course 2 Vital Signs: Vital signs: Vital Signs Temperature 98.6 F 08/02/23 09:01 Pulse Rate 55 L 08/02/23 14:47 Respiratory Rate 18 08/02/23 11:07 Blood Pressure 125/81 08/02/23 14:47 Pulse Oximetry 97 08/02/23 14:47 Oxygen Delivery Me thod Room Air 08/02/23 12:56 MDM - Extremity (Nontraumatic) Medical Decision Making Initially the fracture of the radial head and the coronoid process was noted. When I first examined the patient and a palpable radial pulse. His daughter is a physician was with him in the room we position the arm at 90 degrees intending to splint at their because of the amount of discomfort he was having. It did seem to relieve the pain but his daughter noticed that the pulse was not as strong as it had been previously and we straighten the arm out it improved. We discussed and did a CTA of the arm. Initial report was that the vessels were not opacified I called and talked to V rad they felt that the dye had flushed out of the arm before the scan was done and if it was repeated would need to be imaged quicker in the process. However at this time the arm is extended we are able to feel a good pulse. I had asked the blending technician to call and talk to me. I discussed again with the patient's daughter we ultimately decided to splint and observe with serial physical exams which she would perform at home. In the interim while the nurse was preparing to splint CT came get the patient repeated the exam. Patient's daughter and I discussed again she wished to go home with him and would just observe him she still felt there was a good pulse area and reexamined and felt the pulse as well. I told her we will contact her when I get the CT report back. CT report came back and questions whether or not there is a vascular injury present. I have contacted Dr. Pawel Pulido and she is going to return to the emergency room with her father and will make arrangements for transfer. Lab Data 08/02/23 09:36 08/02/23 09:36 Radiology Impressions Chest X-Ray 08/02/23 08:50 IMPRESSION: No acute findings. Humerus X-Ray 08/02/23 08:50 IMPRESSION: No acute findings left humerus. Face CT 08/02/23 08:54 IMPRESSION: 1. Bilateral nasal bone fractures. 2. Nondisplaced fracture of the anterolateral inferior corner of the right maxillary sinus. 3. Possible nondisplaced fractures of the lateral [place]on of both maxillary sinuses. 4. Additional details as above. Head CT 08/02/23 08:54 IMPRESSION: 1. No acute intracranial findings. 2. Unchanged mild, diffuse atrophy of the brain. 3. Chronic ischemic changes bilaterally may have progressed slightly in the interval. 4. Bilateral nasal bone fractures. 5. Right maxillary sinus fractures with a small amount of gas in the soft tissues lateral to the right maxillary sinus. 6. Blood in the right maxillary sinus versus acute sinusitis. Elbow X-Ray 08/02/23 09:05 IMPRESSION: Fractures of the left radial head and neck and of the left coronoid process. Upper Extremity CTA 08/02/23 13:58 IMPRESSION: 1. Probable focal injury in the very distal left brachial artery. It is unclear if this is causing a hemodynamically significant stenosis. This is at the level of the proximal radial diaphysis. 2. Occlusion of the left radial artery at its origin likely due to arterial injury, less likely due to thromboembolus. No reconstitution of this artery. 3. The most distal left ulnar artery is not opacified. This is probably for technical reasons, but a distal left ulnar artery occlusion cannot be entirely excluded. 4. Probable extravasation of contrast between the proximal and mid left radius and ulna. No obvious hematoma. Laboratory Results WBC 14.09 10^3/uL (3.29-11.43) H 08/02/23 09:36 RBC 4.92 10^6/uL (3.85-5.65) 08/02/23 09:36 Hgb 14.20 g/dL (11.27-16.99) 08/02/23 09:36 Hct 42.6 % (37-53) 08/02/23 09:36 MCV 86.6 fl (82-101) 08/02/23 09:36 MCH 28.9 pg (27-33) 08/02/23 09:36 MCHC 33.3 g/dL (30-55) 08/02/23 09:36 RDW 12.3 % (12.1-15.1) 08/02/23 09:36 Plt Count 266 10^3/cmm (157-399) 08/02/23 09:36 MPV 9.4 fL (7.4-10.4) 08/02/23 09:36 Neut % (Auto) 77.2 % 08/02/23 09:36 Lymph % (Auto) 13.1 % 08/02/23 09:36 [place] % (Auto) 7.1 % 08/02/23 09:36 Eos % (Auto) 1.6 % 08/02/23 09:36 Baso % (Auto) 0.4 % 08/02/23 09:36 Neut # (Auto) 10.88 10^3/uL (1.8-7.7) H 08/02/23 09:36 Lymph # (Auto) 1.9 10^3/uL (0.8-4.8) 08/02/23 09:36 [place] # (Auto) 1.0 10^3/uL (0.2-0.9) H 08/02/23 09:36 Eos # (Auto) 0.2 10^3/uL (0.0-0.8) 08/02/23 09:36 Baso # (Auto) 0.1 10^3/uL (0.0-0.1) 08/02/23 09:36 Nucleated RBC % (auto) 0 % 08/02/23 09:36 Nucleated RBCs # 0.0 /100WBC 08/02/23 09:36 Sodium 135 mmol/L (136-145) L 08/02/23 09:36 Potassium 4.2 mmol/L (3.5-5.1) 08/02/23 09:36 Chloride 100 mmol/L (98-107) 08/02/23 09:36 Carbon Dioxide 24 mmol/L (22-29) 08/02/23 09:36 Anion Gap 15.2 (5-19) 08/02/23 09:36 BUN 11 mg/dL (8-23) 08/02/23 09:36 Creatinine 1.0 mg/dL (0.7-1.2) 08/02/23 09:36 GFR Calculation Not Reportable 08/02/23 09:36 Glucose 140 mg/dL (65-115) H 08/02/23 09:36 Calculated Osmolality 282 mOsm/kg (285-295) L 08/02/23 09:36 Calcium 9.1 mg/dL (8.5-10.5) 08/02/23 09:36 Total Bilirubin 0.7 mg/dL (0.15-1.2) 08/02/23 09:36 AST 23 U/L (0-40) 08/02/23 09:36 ALT 34 U/L (0-41) 08/02/23 09:36 Alkaline Phosphatase 82 U/L (40-130) 08/02/23 09:36 Total Protein 6.7 g/dL (6.6-8.7) 08/02/23 09:36 Albumin 3.9 g/dL (3.5-5.2) 08/02/23 09:36 Globulin 2.8 g/dL (1.3-4.6) 08/02/23 09:36 All radiology interpretation(s) finalized by discharge (See notes) Discharge Plan Discharge Patient Disposition: Home Clinical Impression: Fracture of radial head, left, closed, Tooth injury, Fracture closed, nasal bone, Closed fracture of maxillary sinus, Fall Condition: Stable Prescriptions: New hydrocodone-acetaminophen 5-325 mg tablet 1 tab PO Q6H PRN (Reason: pain) Qty: 15 0RF amoxicillin-pot clavulanate 875-125 mg tablet 1 tab PO BID Qty: 14 0RF promethazine 25 mg tablet 25 mg PO Q6H PRN (Reason: nausea and vomiting) Qty: 20 0RF No Action lisinopril 20 mg tablet 10 mg PO DAILY aspirin 81 mg tablet,delayed release (DR/EC) 325 mg PO DAILY atorvastatin 20 mg tablet 80 mg PO DAILY metoprolol tartrate 50 mg tablet 50 mg PO BID omega 0-krc-tgn-fish oil [Fish Oil] 300-1,000 mg capsule 1 cap PO DAILY Discharge Orders: Discharge ED (Routine); Ordered 08/02/23 Ordered By: Isak Zimmer Referrals: Haley Rocha MD [Primary Care Provider] - Patient Instructions: Opioid Safety, Pain Management Activity Restrictions/Additional Instructions: Thank you for choosing [facility] for your healthcare needs today. It is very important that you follow up as instructed or that you return to the Emergency Department should you have concerns or if your condition changes or worsens in any way. You were seen today after a fall. You have a comminuted radial head fracture as well as nasal bone fractures and maxillary sinus fractures. Finally there were loose teeth. For the radial head fracture you will need to see Dr. Amezquita next week. For the nasal and maxillary sinus fractures you will need to see Dr. George next week. For the tooth injury you should follow-up with a dentist. If you get numbness and tingling or sharp pain developing in the forearm and the hand return to the emergency room. Coding Level of Care Code ED Mixing Tumbler Operator for Amado Dash
[2023-08-02 09:44] LABS: Basophils # 0.1 10^3/uL (0.0-0.1); Basophils % 0.4 %; Eosinophils # 0.2 10^3/uL (0.0-0.8); Eosinophils % 1.6 %; Hematocrit 42.6 % (37-53); Lymphocytes # 1.9 10^3/uL (0.8-4.8); Lymphocytes % 13.1 %; Mean Corpuscular HGB Conc 33.3 g/dL (30-55); Mean Corpuscular Hemoglobin 28.9 pg (27-33); Mean Corpuscular Volume 86.6 fl (82-101); Mean Platelet Volume 9.4 fL (7.4-10.4); Monocytes % 7.1 %; Neutrophils # 10.88 10^3/uL (1.8-7.7); Neutrophils % 77.2 %; Nucleated Red Blood Cells % 0 %; Platelet Count 266 10^3/cmm (157-399); Red Blood Count 4.92 10^6/uL (3.85-5.65); Red Cell Distribution Width 12.3 % (12.1-15.1); White Blood Count 14.09 10^3/uL (3.29-11.43)
[2023-08-02 10:04] LABS: Alanine Aminotransferase 34 U/L (0-41); Albumin Level 3.9 g/dL (3.5-5.2); Alkaline Phosphatase 82 U/L (40-130); Anion Gap 15.2 (5-19); Aspartate Amino Transferase 23 U/L (0-40); Blood Urea Nitrogen 11 mg/dL (8-23); Calcium 9.1 mg/dL (8.5-10.5); Carbon Dioxide 24 mmol/L (22-29); Chloride 100 mmol/L (98-107); Creatinine Clr Calc Pharmacy 75.6665; Globulin 2.8 g/dL (1.3-4.6); Glucose 140 mg/dL (65-115); Osmolality Calculated 282 mOsm/kg (285-295); Potassium 4.2 mmol/L (3.5-5.1); Sodium 135 mmol/L (136-145); Total Bilirubin 0.7 mg/dL (0.15-1.2); Total Protein 6.7 g/dL (6.6-8.7)
[2023-08-02] MEDS: ondansetron 2 mg/ML SDV 2 mL 4 MG IVP (10:11)
[2023-08-02] MEDS: morphine 4 mg/mL SDV 1 mL IVP (10:12)
--- NOTE | 2023-08-02 10:12 | ECG_ITS ---
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 Measurements Intervals [place] Rate: 49 P: 26 SC: 207 QRS: 40 QRSD: 114 T: 21 QT: 453 QTc: 413 Interpretive Statements SINUS BRADYCARDIA INFERIOR MYOCARDIAL INFARCTION , PROBABLY OLD [40+ ms Q WAVE AND/OR ST/T ABNORMALITY IN II/aVF] Compared to ECG 09/02/2019 22:47:30 Sinus rhythm no longer present Myocardial infarct finding still present Electronically Signed On 08-03-2023 20:16:35 CDT by Andrew Castellon M.D. [email or web address]
--- NOTE | 2023-08-02 10:46 | CTR_ITS ---
PROCEDURE INFORMATION: Exam: CTA Left Upper Extremity With Contrast Exam date and time: 08/02/2023 11:43 AM Age: 78 years old Clinical indication: Injury or trauma; Fall; Blunt trauma (contusions or hematomas); Elbow; Left; Additional info: Radial head FX - diminished radial pulse TECHNIQUE: Imaging protocol: Computed tomographic angiography of the left upper extremity with contrast, including non-contrast images if performed. 3D rendering (Not supervised by radiologist): MIP and/or 3D reconstructed images were created by the technologist. Radiation optimization: All CT scans at this facility use at least one of these dose optimization techniques: automated exposure control; mA and/or kV adjustment per patient size (includes targeted exams where dose is matched to clinical indication); or iterative reconstruction. Contrast material: OMNI 350; Contrast volume: 100 ml; Contrast route: INTRAVENOUS (IV); COMPARISON: CR ([facility], ) 08/02/2023 9:19 AM RADIATION DOSE METRICS: Total DLP (mGy-cm): 1933.89 FINDINGS: Left subclavian artery: Limited views. Grossly unremarkable. Axillary artery: See Other arteries finding. Brachial artery: See Other arteries finding. Radial artery: See Other arteries finding. Ulnar artery: See Other arteries finding. Other arteries: There is very poor opacification of the arteries. The left axillary artery and proximal left brachial artery are grossly unremarkable, but the examination is nondiagnostic regarding the distal left brachial artery, the left radial artery, and the left ulnar artery due to very little contrast within these arteries. There is no obvious extravasation of contrast in the left arm. Bones/joints: Comminuted, impacted, and displaced radial head fracture. A large radial head fracture fragment is displaced posteriorly about 1.5 cm, and is rotated. It is abutting the inferior aspect of the lateral epicondyle and the lateral aspect of the olecranon. There is a nondisplaced avulsion fracture involving the coronoid process. No other fractures. Small joint effusion. Otherwise, unremarkable. Soft tissues: There are surgical clips in the soft tissues of the forearm. Otherwise, unremarkable soft tissues. CT/[place] [address] IMPRESSION: 1. The examination is nondiagnostic regarding the distal left brachial artery, the left radial artery, and the left ulnar artery due to very little contrast opacification in these arteries. The main arteries visualized proximal to this are grossly unremarkable. 2. No obvious extravasation of contrast. 3. Additional details as above.
--- NOTE | 2023-08-02 10:47 | PC.NURSE ---
Addendum entered by Debi Keen RN 08/02/23 14:51: Dr. Zimmer was notified of findings by this nurse immediately after assessment. Original Note: L radial pulse weak, thready 1+ via palpation by this nurse and ED charge nurse.
--- NOTE | 2023-08-02 11:00 | PC.NURSE ---
discharge delayed d/t further testing
[2023-08-02] MEDS: diphenhydrAMINE 50 mg/mL SDV 1mL IVP (11:19)
[2023-08-02] MEDS: methylPREDNISolone sod succ 125 mg/2 mL INJ 80 MG IVP (11:22)
[2023-08-02] MEDS: sodium chloride 0.9% 1,000 ML 999 ML IV (11:24)
[2023-08-02] MEDS: iohexol 350 mg/mL 500 mL Btl (per mL) IV (11:50)
--- NOTE | 2023-08-02 13:30 | PC.NURSE ---
Discharge Delay: discharge delayed further d/t waiting on repeat CT scan, per Dr. Zimmer
--- NOTE | 2023-08-02 13:42 | DCPLANNER ---
Sent ER followup request to the Ortho clinic 08/02/23 @[id number]
--- NOTE | 2023-08-02 13:58 | CTR_ITS ---
PROCEDURE INFORMATION: Exam: CTA Left Upper Extremity With Contrast Exam date and time: 08/02/2023 1:59 PM Age: 78 years old Clinical indication: Injury or trauma; Fall; Blunt trauma (contusions or hematomas); Elbow; Left TECHNIQUE: Imaging protocol: Computed tomographic angiography of the left upper extremity with contrast, including non-contrast images if performed. 3D rendering (Not supervised by radiologist): MIP and/or 3D reconstructed images were created by the technologist. Radiation optimization: All CT scans at this facility use at least one of these dose optimization techniques: automated exposure control; mA and/or kV adjustment per patient size (includes targeted exams where dose is matched to clinical indication); or iterative reconstruction. Contrast material: OMNI 350; Contrast volume: 100 ml; Contrast route: INTRAVENOUS (IV); COM[place]: [place] [id number] 08/02/2023 11:43 AM RADIATION DOSE METRICS: Total DLP (mGy-cm): 805.46 FINDINGS: Left subclavian artery: Not imaged. Axillary artery: There is a kink in the left axillary artery causing 40% diameter stenosis. This is not hemodynamically significant. Otherwise, unremarkable. Brachial artery: There is focally diminished contrast over a few mm in the most distal left brachial artery which probably represents arterial injury. It is unclear if this is causing a hemodynamically significant stenosis. Radial artery: There is no obvious contrast within the left radial artery. It is likely injured and occluded at its origin. No obvious reconstitution. Ulnar artery: The left ulnar artery appears normal to the distal forearm. It is not opacified in the distal forearm or at the level of the wrist. This is probably due to technique and imaging timing, however, a distal left ulnar artery occlusion cannot be entirely excluded. Bones/joints: Unchanged left elbow fractures. Soft tissues: There is patchy, ill-defined hyperdensity between the proximal and mid left ulna and radius. This could be extravasation of contrast. There is no parveen hematoma. Otherwise, unremarkable. CT/[place] [address] IMPRESSION: 1. Probable focal injury in the very distal left brachial artery. It is unclear if this is causing a hemodynamically significant stenosis. This is at the level of the proximal radial diaphysis. 2. Occlusion of the left radial artery at its origin likely due to arterial injury, less likely due to thromboembolus. No reconstitution of this artery. 3. The most distal left ulnar artery is not opacified. This is probably for technical reasons, but a distal left ulnar artery occlusion cannot be entirely excluded. 4. Probable extravasation of contrast between the proximal and mid left radius and ulna. No obvious hematoma.
--- NOTE | 2023-08-02 14:10 | PC.NURSE ---
per Dr. Zimmer to apply posterior-long splint to LUE and to discharge patient.
== END 2023-08-02 14:47 | disposition home or self-care (01) ==
PROVIDERS: Emergency Provider Family Medicine; PCP Internal Medicine
DX: S52.122A Displaced fracture of head of left radius, initial encounter for closed fracture (principal); S02.2XXA Fracture of nasal bones, initial encounter for closed fracture; S02.40CA Maxillary fracture, right side, initial encounter for closed fracture; S09.93XA Unspecified injury of face, initial encounter; Z79.82 Long term (current) use of aspirin; I25.2 Old myocardial infarction; I25.10 Atherosclerotic heart disease of native coronary artery without angina pectoris; E78.5 Hyperlipidemia, unspecified; I10 Essential (primary) hypertension; Z95.1 Presence of aortocoronary bypass graft; W18.09XA Striking against other object with subsequent fall, initial encounter
CPT/HCPCS: 70450; 70486; 71045; 73060; 73080; 73206; 80053; 85025; 93005; 96374; 96375; 99285; J1200; J2270; J2405; J2919; J7030; Q9967

== ENCOUNTER 2023-08-02 16:06 | Emergency (ER) | payer MEDICARE, OTHER, SELFPAY ==
--- NOTE | 2023-08-02 16:51 | W.ED.EXTPRO ---
HPI - Extremity Problem General: Chief complaint: Extremity Injury, Upper Stated complaint: mustapha called to come back Time Seen by Provider: 08/02/23 16:51 Source: patient History of Present Illness: 78-year-old male who was seen earlier for a fall. He had a radial head fracture. Initially he has had a reasonably good palpable radial pulse on exam and noticed a small scar there his daughter who is a physician reported he had had a injury previously and has had stitches. We had identified the radial head fracture but when he positioned his arm for splint and sling he had more discomfort his daughter felt the radial pulse was diminished had a difficult time palpating it and we did a CTA of the arm. Radiology read it as portal enhancement of the arteries I had discussed with the radiologist repeating the study they felt that the imaging was too delayed and there was washout of the diet in the arterial system. I discussed options with the patient and his daughter and we ultimately decided to just observe in part to avoid a second contrast dose. I had called to talk to the tach the power tool repair technician had understood that we wanted repeated and took the patient for repeat CT. This was discovered prior to discharge family preferred not to wait for the results wanted to be discharged and asked that we contact, results. Results later came back and there is a question of a possible brachial artery injury. Contacted patient's daughter and asked her to return to the emergency room with the patient. Upon arrival patient has no further pain or discomfort than what was present initially after the fall. 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 Family History Other Atrial fibrillation CAD (coronary artery disease) Social History Smoking and tobacco/nicotine status: never used tobacco/nicotine Alcohol intake: never Substance/Drug Use: never Physical Exam Const: GENERAL APPEARANCE: cooperative and comfortable ORIENTATION/CONSCIOUSNESS: Yes awake, Yes oriented to person, Yes oriented to place and Yes oriented to time HENMT: COMMON NORMALS: normocephalic, atraumatic and hearing grossly normal bilaterally HEAD & SCALP: normocephalic and atraumatic Resp: COMMON NORMALS: normal respiratory effort, No retractions, No use of accessory muscles and clear to auscultation bilaterally AUSCULTATION: clear to auscultation bilaterally Cardio: COMMON NORMALS: regular rate, regular rhythm and No murmurs present (Cardio) RATE: regular rate RHYTHM: regular rhythm Extremity: OTHER: Moderate swelling of the elbow and proximal to the elbow. Sensation in the left hand intact patient able to flex and extend the fingers ulnar pulses easily palpable weak radial pulse, inconsistent on exam Neuro: SENSORIUM/ORIENTATION: Yes oriented to person, Yes oriented to place and Yes oriented to time Skin: COMMON NORMALS: no rashes or lesions noted GENERAL SKIN EXAM: no rashes or lesions noted MDM - Extremity (Nontraumatic) Medical Decision Making Will transfer to [facility]. Patient is not having significant pain at this time and asked to go by private vehicle. Patient placed in a sling patient given all of his records did show his imaging. His daughter will drive him directly to [facility] we did contact [facility] ER I talked to ED physician nursing staff contacted and did nursing report. Daughter will contact me later after they had transferred and arrived at [facility] she recalls now that they harvested a portion of the radial artery for his bypass graft several years ago. There is still evaluating for possible brachial artery dissection Medical Records I reviewed the patient's medical records. No radiology studies performed this visit (Studies done at previous visit see notes) Discharge Plan Discharge Patient Disposition: Transfer to ED Clinical Impression: Injury of brachial artery Condition: Stable Prescriptions: No Action lisinopril 20 mg tablet 10 mg PO DAILY aspirin 81 mg tablet,delayed release (DR/EC) 325 mg PO DAILY atorvastatin 20 mg tablet 80 mg PO DAILY metoprolol tartrate 50 mg tablet 50 mg PO BID omega 3-iwq-rzq-fish oil [Fish Oil] 300-1,000 mg capsule 1 cap PO DAILY hydrocodone-acetaminophen 5-325 mg tablet 1 tab PO Q6H PRN (Reason: pain) Qty: 15 0RF amoxicillin-pot clavulanate 875-125 mg tablet 1 tab PO BID Qty: 14 0RF promethazine 25 mg tablet 25 mg PO Q6H PRN (Reason: nausea and vomiting) Qty: 20 0RF Referrals: Haley Rocha MD [Primary Care Provider] - Coding Level of Care Code 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
== END 2023-08-02 17:40 ==
PROVIDERS: Emergency Provider Family Medicine; PCP Internal Medicine
DX: S45.102A Unspecified injury of brachial artery, left side, initial encounter (principal); Z79.82 Long term (current) use of aspirin; I25.2 Old myocardial infarction; I25.10 Atherosclerotic heart disease of native coronary artery without angina pectoris; E78.5 Hyperlipidemia, unspecified; I10 Essential (primary) hypertension; Z95.1 Presence of aortocoronary bypass graft; W19.XXXA Unspecified fall, initial encounter
CPT/HCPCS: 99283

== ENCOUNTER 2023-08-25 09:39 | Outpatient (RCR) | payer MEDICARE, OTHER, SELFPAY | END 2023-09-24 23:59 | disposition home or self-care (01) | LOC: SOT 09:39 | PROVIDERS: PCP Internal Medicine; Visit Provider Internal Medicine | DX: S52.125D Nondisplaced fracture of head of left radius, subsequent encounter for closed fracture with routine healing (principal); X58.XXXD Exposure to other specified factors, subsequent encounter | CPT/HCPCS: 97022; 97110; 97140; 97165; 97530 ==

== ENCOUNTER 2023-09-25 06:00 | Outpatient (RCR) | payer MEDICARE, OTHER, SELFPAY | END 2023-10-25 18:00 | disposition home or self-care (01) | LOC: SOT 06:00 | PROVIDERS: PCP Internal Medicine; Visit Provider Internal Medicine | DX: S52.125S Nondisplaced fracture of head of left radius, sequela (principal); X58.XXXS Exposure to other specified factors, sequela | CPT/HCPCS: 97022; 97110; 97140 ==